=== PATIENT | male | born 1975 | race African-American/Black ===

== ENCOUNTER 2018-03-27 18:33 | Emergency (ER) | payer OTHER ==
[~2018-03-27] VITALS: Ht 188 cm; Wt 77.1 kg
[~2018-03-27 18:33] MED LIST: PREDNISONE 20 M20 MG PO; PROAIR HFA8.5 GM INH; ZPAK PO
[2018-03-27] MEDS ORDERED: VENTOLIN HFA 1818 GM INH (19:20)
[2018-03-27] MEDS ORDERED: PREDNISONE 20 M20 MG PO (19:20)
[2018-03-27 19:44] VITALS: BP 134/84
== END 2018-03-27 19:38 | disposition home or self-care (01) ==
LOC: M.ERS 18:33
DX: J45.909 Unspecified asthma, uncomplicated (principal); F17.210 Nicotine dependence, cigarettes, uncomplicated

== ENCOUNTER 2018-06-08 09:06 | Emergency (ER) | payer BC ==
[~2018-06-08] VITALS: Ht 190.5 cm; Wt 79.4 kg
[~2018-06-08 09:06] MED LIST changes: +VENTOLIN HFA 1818 GM INH
[2018-06-08] MEDS ORDERED: VENTOLIN HFA 1818 GM INH (09:31)
[2018-06-08] MEDS ORDERED: PREDNISONE50 MG PO (09:31)
[2018-06-08] MEDS ORDERED: PERMETHRIN1 GM TOP (09:42)
[2018-06-08] MEDS ORDERED: DIPHENHIST50 MG PO (09:42)
[2018-06-08 09:48] VITALS: BP 141/104
== END 2018-06-08 09:50 | disposition home or self-care (01) ==
LOC: M.ERS 09:06
DX: J45.901 Unspecified asthma with (acute) exacerbation (principal); F17.210 Nicotine dependence, cigarettes, uncomplicated